=== PATIENT | male | born 1980 | race Caucasian/White ===

== ENCOUNTER 2023-02-18 12:39 | Outpatient (CLI) | payer OTHER, SELFPAY | END 2023-02-18 12:40 | disposition home or self-care (01) | LOC: NFLDREF 02-19 00:20 | PROVIDERS: Visit Provider Family Medicine | DX: I10 Essential (primary) hypertension (principal); E78.5 Hyperlipidemia, unspecified; M54.9 Dorsalgia, unspecified; G89.29 Other chronic pain; Z13.6 Encounter for screening for cardiovascular disorders | CPT/HCPCS: 80053; 80061; 82043; 82570 ==